=== PATIENT | male | born 1940 | race Caucasian/White ===

== ENCOUNTER → 2016-03-09 | Outpatient (CLI) | payer OTHER, MEDICARE ==
--- NOTE | 2016-03-09 09:50 | EKG ---
[address] [address] Measurements Intervals [place] Rate: 51 P: 26 [place]: 156 QRS: 48 QRSD: 121 T: 74 QT: 430 QTc: 405 Interpretive Statements SINUS BRADYCARDIA MODERATE INTRAVENTRICULAR CONDUCTION DELAY Compared to ECG 12/11/2014 08:41:59 Intraventricular conduction delay now present Left bundle-branch block no longer present Electronically Signed On 03-09-16 15:57:56 MST by Stefan Alonzo [email or web address]
== END ==
LOC: MOB EKG 09:38
PROVIDERS: ATTEND Internal Medicine
DX: I10 Essential (primary) hypertension (principal); I48.91 Unspecified atrial fibrillation; R00.1 Bradycardia, unspecified; R42 Dizziness and giddiness; I45.89 Other specified conduction disorders
CPT/HCPCS: 93005; 93010

== ENCOUNTER → 2016-05-17 | Outpatient (CLI) | payer OTHER, MEDICARE | LOC: MMPC 09:00 | PROVIDERS: ATTEND Physician Assistant Medical | DX: R42 Dizziness and giddiness (principal) | CPT/HCPCS: 99213; G0463 ==

== ENCOUNTER → 2016-05-31 | Outpatient (CLI) | payer OTHER, MEDICARE ==
[2016-05-31 09:40] LABS: BASOPHILS # (AUTO) 0.07 10*3/UL; BASOPHILS % (AUTO) 0.8 % (0-1); EOSINOPHILS # (AUTO) 0.42 10*3/UL; HEMATOCRIT 43.7 % (42.0-52.0); HEMOGLOBIN 14.4 g/dL (14.0-18.0); LYMPHOCYTES # (AUTO) 3.16 10*3/uL; MEAN CORPUSCULAR VOLUME 87.9 FL (80-90); MEAN PLATELET VOLUME 8.9 FL (7.4-12.2); MONOCYTES # (AUTO) 0.58 10*3/UL (0.3-0.8); MONOCYTES % (AUTO) 6.8 % (5-15); NEUTROPHILS # (AUTO) 4.23 10*3/UL; RED BLOOD COUNT 4.97 10^6/uL (4.70-6.10)
[2016-05-31 09:44] LABS: PLATELET MORPHOLOGY COMMENT NORMAL MORPHOLOGY (NORM); RBC MORPHOLOGY COMMENT NORMAL MORPHOLOGY (NORM); WBC MORPHOLOGY COMMENT NORMAL MORPHOLOGY (NORM)
[2016-05-31 09:56] LABS: CALCIUM 8.9 mg/dL (8.7-10.7)
[2016-05-31 09:58] LABS: HEMOGLOBIN A1C 5.56 % (4.2-6.0)
[2016-05-31 10:26] LABS: FREE T4 (FREE THYROXINE) 1.52 ng/dL (0.93-1.71)
== END ==
LOC: LAB 09:14
PROVIDERS: ATTEND Internal Medicine
DX: I10 Essential (primary) hypertension (principal); E78.00 Pure hypercholesterolemia, unspecified; I48.91 Unspecified atrial fibrillation; J44.9 Chronic obstructive pulmonary disease, unspecified; R00.1 Bradycardia, unspecified; E03.9 Hypothyroidism, unspecified
CPT/HCPCS: 36415; 80048; 83036; 84439; 84443; 85025

== ENCOUNTER → 2016-06-07 | Outpatient (CLI) | payer OTHER, MEDICARE ==
[2016-06-07 11:40] LABS: BUN/CREATININE RATIO 23.63 (6-20); CALCIUM 9.4 mg/dL (8.7-10.7); SERUM ALBUMIN 3.9 g/dL (3.5-4.8)
[2016-06-07 12:15] LABS: CHOL/HDL RATIO 4.61 RATIO (0-4.0); LDL CHOLESTEROL,CALCULATED 105.2 mg/dL
[2016-06-07 13:57] LABS: FREE T4 (FREE THYROXINE) 1.69 ng/dL (0.93-1.71)
== END ==
LOC: MOB LAB 09:57
PROVIDERS: ATTEND Internal Medicine
DX: E03.9 Hypothyroidism, unspecified (principal); R94.6 Abnormal results of thyroid function studies; R42 Dizziness and giddiness; E78.00 Pure hypercholesterolemia, unspecified; I48.91 Unspecified atrial fibrillation; R07.89 Other chest pain; G47.34 Idiopathic sleep related nonobstructive alveolar hypoventilation; H91.93 Unspecified hearing loss, bilateral; I10 Essential (primary) hypertension
CPT/HCPCS: 36415; 80053; 80061; 84439; 84443; 84481; 99213; G0463

== ENCOUNTER → 2016-09-22 | Outpatient (CLI) | payer OTHER, MEDICARE | LOC: MMPC 09:00 | PROVIDERS: ATTEND Physician Assistant Medical | DX: M25.561 Pain in right knee (principal); W10.1XXA Fall (on)(from) sidewalk curb, initial encounter | CPT/HCPCS: 99213; G0463 ==